=== PATIENT | female | born 1980 | race Caucasian/White ===

== ENCOUNTER 2016-11-05 00:48 | Emergency (ER) | payer OTHER ==
[2016-11-05 01:09] VITALS: BP 153/102; PULSE 75; TEMP 98.1; BMI 31.9
--- NOTE | 2016-11-05 02:02 | PDOC ---
History of Present Illness - General Chief Complaint: Wound Infection Stated Complaint: TOE INFECTION Time Seen by Provider: 11/05/16 01:20 History Source: Patient Exam Limitations: No Limitations - History of Present Illness Initial Comments: 11/05/16 02:16 36-year-old female presents to the emergency department complaining of slight drainage to the left great toe and right third toe. Patient states she accidentally cut a piece of her skin when she cut her toenail 3 days ago and noticed some drainage earlier today. She denies any fever, chills, extremity numbness or tingling sensation. Tetanus is withinn 5 years. Timing/Duration: reports: just prior to arrival Location: reports: none Past History - Past Medical History Allergies/Adverse Reactions: Allergies Allergy/AdvReac Type Severity Reaction Status Date / Time No Known Allergies Allergy Verified 11/05/16 01:03 Home Medications: Ambulatory Orders Sulfamethoxazole/Trimethoprim [Bactrim Ds -] 1 tab PO BID #14 tablet 11/05/16 Diabetes: Yes - Psycho/Social/Smoking Cessation Hx Suicidal Ideation: No Smoking History: Never smoked *Physical Exam - Vital Signs Last Vital Signs Temp Pulse Resp BP Pulse Ox 98.1 F 75 18 153/102 99 11/05/16 01:04 11/05/16 01:04 11/05/16 01:04 11/05/16 01:04 11/05/16 01:04 - Physical Exam Comments: 11/05/16 02:17 GENERAL: Well developed, well nourished. Awake and alert. No acute distress. MUSCULOSKELETAL left great toe; medial nail fold/puru;ent discharge/+pain on palp/neg lymphangitis Normal range of motion at all joints. No bony deformities or tenderness. No CVA tenderness. EXTREMITIES: No cyanosis. No clubbing. No edema. No calf tenderness. SKIN: Warm and dry. Normal capillary refill. No rashes. No jaundice. *DC/Admit/Observation/Transfer Diagnosis at time of Disposition: Toe infection - Discharge Dispostion Disposition: HOME Condition at time of disposition: Stable Admit: No - Prescriptions Prescriptions: Sulfamethoxazole/Trimethoprim [Bactrim Ds -] 1 tab PO BID #14 tablet - Patient Instructions Printed Discharge Instructions: DI for Wound Infection Additional Instructions: Warm soaks/compress Tylenol/Motrin as needed for pain Return to the ER for severe/persistent/worsening symptoms
[2016-11-05] MEDS ORDERED: SULFAMETHOXAZOLE/TRIMETHOPRIM 800MG/160MG D.S. TABLET PO ONE (02:03)
[2016-11-05] MEDS ORDERED: SULFAMETHOXAZOLE/TRIMETHOPRIM 800MG/160MG D.S. TABLET ONE (02:04)
[2016-11-05] MEDS ORDERED: ACETAMINOPHEN WITH CODEINE 300MG/30MG TABLET PO ONE (02:19)
[2016-11-05] MEDS ORDERED: ACETAMINOPHEN WITH CODEINE 300MG/30MG TABLET ONE (02:24)
== END 2016-11-05 02:34 | disposition home or self-care (01) ==
LOC: JER 00:48
DX: L08.9 Local infection of the skin and subcutaneous tissue, unspecified (principal)
CPT/HCPCS: 87070; 87186; 87205; 99281-25

== ENCOUNTER 2016-12-02 16:55 | Emergency (ER) | payer OTHER ==
[2016-12-02 17:08] VITALS: BP 132/78; PULSE 66; TEMP 98; BMI 31.0
[2016-12-02] MEDS ORDERED: SULFAMETHOXAZOLE/TRIMETHOPRIM 800MG/160MG D.S. TABLET PO ONE (17:39)
--- NOTE | 2016-12-02 17:39 | PDOC ---
History of Present Illness - General Chief Complaint: Ingrown toenail Stated Complaint: INGROWN TOENAIL Time Seen by Provider: 12/02/16 17:18 History Source: Patient Exam Limitations: No Limitations - History of Present Illness Initial Comments: 12/02/16 17:40 Came to emergency department for reevaluation of left great toe. States 2 weeks ago was seen and treated for bilateral paronychia of great toes. States suffers frequently from ingrown toenails, usually clips them and feels better. 2 weeks ago states did not take care of them and progressively became worse. Was placed on antibiotics and had good resolution however 2 days ago dropped a piece of heavy furniture on the left great toe which made infection, swelling and drainage from left great toe paronychia reoccur. Denies fever, denies streaking , has been soaking in using Neosporin ointment also Mercurichrome .. Denies fever, but is painful 12/02/16 18:25 12/02/16 18:28 Timing/Duration: reports: changing over time, getting worse Severity: Yes: moderate Location: reports: feet Past History - Travel Traveled outside of the country in the last 30 days: No Close contact w/someone who was outside of country & ill: No - Past Medical History Allergies/Adverse Reactions: Allergies Allergy/AdvReac Type Severity Reaction Status Date / Time No Known Allergies Allergy Verified 12/02/16 17:04 Home Medications: Ambulatory Orders Metformin HCl [Glucophage] 500 mg PO BID #30 tablet 11/05/16 Sulfamethoxazole/Trimethoprim [Bactrim *Ds*] 1 each PO BID #14 tablet 12/02/16 Diabetes: Yes Hypercholesterolemia: Yes - Psycho/Social/Smoking Cessation Hx Suicidal Ideation: No Smoking History: Never smoked Review of Systems - Review of Systems Able to Perform ROS?: Yes Is the patient limited Irish proficient: Yes Constitutional: Yes: Symptoms Reported, See HPI, Malaise. No: Fever HEENTM: No: Symptoms Reported Respiratory: No: Symptoms reported Musculoskeletal: Yes: Symptoms Reported, Joint Pain (great toe, has no true joint/MTP pain). No: Joint Swelling All Other Systems: Reviewed and Negative *Physical Exam - Vital Signs Last Vital Signs Temp Pulse Resp BP Pulse Ox 98 F 66 18 132/78 100 12/02/16 17:04 12/02/16 17:04 12/02/16 17:04 12/02/16 17:04 12/02/16 17:04 - Physical Exam General Appearance: Yes: Appropriately Dressed, Apparent Distress HEENT: positive: BEATA, Normal ENT Inspection, TMs Normal, Pharynx Normal Neck: positive: Supple, Lymphadenopathy (R), Lymphadenopathy (L). negative: Tender Respiratory/Chest: positive: Lungs Clear, Normal Breath Sounds Gastrointestinal/Abdominal: positive: Soft. 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 *DC/Admit/Observation/Transfer Diagnosis at time of Disposition: Toe infection - Discharge Dispostion Disposition: HOME Condition at time of disposition: Stable - Prescriptions Prescriptions: Sulfamethoxazole/Trimethoprim [Bactrim *Ds*] 1 each PO BID #14 tablet - Referrals Referrals: Norm Patricia MD [Staff Physician] - - Patient Instructions Printed Discharge Instructions: DI for Ingrown Toenail Additional Instructions: Rest, keep foot elevated Avoid heavy lifting or strenuous activity until healed Soak foot every 2-3 hours while awake for the next 2-3 days to keep continue to allow drainage Reapply bacitracin ointment and bulky dressing after each soaking May use ibuprofen or Tylenol for pain relief Followup with private physician in one to 2 days for wound check as needed Return immediately to emergency department or private doctor's for worsening redness, swelling, pain, streaking Take all of antibiotics until completed - Post Discharge Activity Work/School Note: Back to Work
[2016-12-02] MEDS ORDERED: SULFAMETHOXAZOLE/TRIMETHOPRIM 800MG/160MG D.S. TABLET ONE (17:40)
--- NOTE | 2016-12-02 17:40 | PDOC ---
History of Present Illness - General Chief Complaint: Ingrown toenail Stated Complaint: INGROWN TOENAIL Time Seen by Provider: 12/02/16 17:18 History Source: Patient Exam Limitations: No Limitations - History of Present Illness Initial Comments: 12/02/16 17:23 2 days ago. dropped heavy piece of furniture on her left great toe. Had been treated 2 weeks ago for a paronychial infection of bilateral great toes. was treated with antibiotics and had good resolution until she injured this toe. had a recurrence of the swelling and pain with purulent drainage from the side. 12/02/16 17:49 Occurred: reports: other Severity: reports: mild, moderate Pain Location: reports: lower extremity (left great toe) Method of Injury: Yes: direct blow Modifying Factors: improves with: None, cold therapy Associated Symptoms (Fall): denies symptoms Past History - Travel Traveled outside of the country in the last 30 days: No Close contact w/someone who was outside of country & ill: No - Past Medical History Allergies/Adverse Reactions: Allergies Allergy/AdvReac Type Severity Reaction Status Date / Time No Known Allergies Allergy Verified 12/02/16 17:04 Home Medications: Ambulatory Orders Metformin HCl [Glucophage] 500 mg PO BID #30 tablet 11/05/16 Sulfamethoxazole/Trimethoprim [Bactrim *Ds*] 1 each PO BID #14 tablet 12/02/16 Diabetes: Yes Hypercholesterolemia: Yes - Psycho/Social/Smoking Cessation Hx Suicidal Ideation: No Smoking History: Never smoked Trauma Specific PMHX - Complaint Specific PMHX Back Injury: No Neck Injury: No Review of Systems - Review of Systems Able to Perform ROS?: Yes Is the patient limited Uzbek proficient: Yes Constitutional: Yes: See HPI, Malaise. No: Fever HEENTM: No: Symptoms Reported Respiratory: No: Symptoms reported Musculoskeletal: Yes: Symptoms Reported, See HPI, Other (toe pain ) Integumentary: Yes: Symptoms Reported, See HPI All Other Systems: Reviewed and Negative *Physical Exam - Vital Signs Last Vital Signs Temp Pulse Resp BP Pulse Ox 98 F 66 18 132/78 100 12/02/16 17:04 12/02/16 17:04 12/02/16 17:04 12/02/16 17:04 12/02/16 17:04 - Physical Exam General Appearance: Yes: Nourished, Appropriately Dressed, Apparent Distress, Mild Distress HEENT: positive: BEAAT, Normal ENT Inspection, TMs Normal, Pharynx Normal Neck: positive: Tender, Supple Respiratory/Chest: negative: Normal Breath Sounds, Respiratory Distress Gastrointestinal/Abdominal: positive: Soft Extremity: positive: Normal Range of Motion, Tender (with swelling and erythema = oozing serous and some purulent drainage- no fluctuance- no streaking and no MTP pain ). negative: Normal Capillary Refill, Normal Inspection Integumentary: positive: Warm, Erythema (to medial aspect of great toe/ paronychia- not fluctuant and draining ,. 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 Will repeat seven-day course of Bactrim and have follow-up with podiatry for definitive chronic ingrown toenail treatment *DC/Admit/Observation/Transfer Diagnosis at time of Disposition: Toe infection - Discharge Dispostion Disposition: HOME Condition at time of disposition: Stable Admit: No - Referrals Referrals: Norm Patricia MD [Staff Physician] - - Patient Instructions Printed Discharge Instructions: DI for Ingrown Toenail Additional Instructions: Rest, keep foot elevated Avoid heavy lifting or strenuous activity until healed Soak foot every 2-3 hours while awake for the next 2-3 days to keep continue to allow drainage Reapply bacitracin ointment and bulky dressing after each soaking May use ibuprofen or Tylenol for pain relief Followup with private physician in one to 2 days for wound check as needed Return immediately to emergency department or private doctor's for worsening redness, swelling, pain, streaking Take all of antibiotics until completed - Post Discharge Activity Work/School Note: Back to Work
== END 2016-12-02 17:59 | disposition home or self-care (01) ==
LOC: JERFT 16:55
DX: L03.032 Cellulitis of left toe (principal)
CPT/HCPCS: 99281-25